=== PATIENT | female | born 1950 | race Caucasian/White ===

== ENCOUNTER → 2016-12-22 | Outpatient (CLI) | payer MEDICARE, BC | END | disposition disaster alternative care site (69) | LOC: GRAD 16:30 | DX: M50.13 Cervical disc disorder with radiculopathy, cervicothoracic region (principal); M48.02 Spinal stenosis, cervical region ==

== ENCOUNTER → 2016-12-27 | Outpatient (CLI) | payer MEDICARE, BC ==
--- NOTE | ~2016-12-27 | PUL ---
PATIENT'S NAME: NATIVIDAD MORELOSIA Sim [facility] AGE: 66 Y [address] ROOM: [place] [id number] LOCATION: [facility] ADMIT DATE: 12/27/2016 Pulmonary DISCHARGE DATE: FAMILY PHYSICIAN: Andrew Wisdom MD ATTENDING PHYSICIAN: Andrew Wisdom NAME OF PROCEDURE: Sleep Study DATE OF PROCEDURE: 12/27/2016 TECH: GENOVEVA Barrett TEST #: [facility] [place]# [id number] TECHNICAL PARAMETERS: The patient was studied using International 10/20 measuring system. While the patient was studied, there was continuous monitoring of EEG (8 leads), EOG (2 leads), EKG (3 leads), submental EMG (3 leads), tibial (4 leads), respiratory inductive plethysmography (RIP) for thoracic and abdominal effort, oral and nasal airflow with a thermocouple and pressure transducer, and oximetry. The substance abuse technician also performed visual and auditory observations noting things like body position, patient's status, breath sounds, artifact, snoring level and patient comments. Continuous sound was monitored using a 2-way speaker system and video monitoring was performed using an infrared camera. Review of the entire study was performed epoch by epoch utilizing a single epoch and multiple epoch capability sleep system. MEDICAL HISTORY: Patient is a 66-year-old overweight woman with daytime sleepiness and snoring. SLEEP STAGE SUMMARY: The patient was studied for 517 minutes of which she slept 259 minutes. She fell asleep in 59 minutes and slept for 50% of the night. Sleep architecture revealed a decline in slow wave and REM sleep. RESPIRATORY SUMMARY: Oxygen saturations ranged from 79% to 91%. This study was done to titrate CPAP which was initiated at 6 cm titrated to 16 cm. The 16 cm of CPAP controlled the respiratory events well. EKG SUMMARY: No dysrhythmias were noted. LIMB MOVEMENT SUMMARY: Frequent periodic limb movements were noted. These are probably clinically relevant. Overall limb movement index was 160 events per hour. IMPRESSION: Obstructive sleep apnea responsive to CPAP at 16 cm and probable periodic limb movement disorder. PATIENT'S NAME: SAGRARIO MORELOS [facility] AGE: 66 Y [address] ROOM: [place], [place] [address] LOCATION: [facility] ADMIT DATE: 12/27/2016 Pulmonary DISCHARGE DATE: FAMILY PHYSICIAN: Andrew Wisdom MD ATTENDING PHYSICIAN: Andrew Wisdom PLAN: Patient will receive results from the ordering provider. MD BRIAN LENZ/ /[id number] dtt: 01/06/17 0948 , Otto Valentine. dtd: 01/02/17 1606
== END | disposition disaster alternative care site (69) ==
LOC: GSLP 20:10
DX: G47.33 Obstructive sleep apnea (adult) (pediatric) (principal)